=== PATIENT | male | born 1955 | race Caucasian/White ===

== ENCOUNTER 2018-08-02 20:30 | Inpatient (IN) | payer MEDICARE ==
[~2018-08-02] VITALS: Ht 162.6 cm; Wt 84.6 kg
[~2018-08-02 20:30] MED LIST: GABA300 PO; SERT25; TAMS.4ER PO; TRAZ150T57 PO
[2018-08-02 21:54] LABS: BASOPHILS ABSOLUTE AUTO 0.06 K/mm3 (0.00-0.23); BASOPHILS PERCENT AUTO 1 % (0-2); EOSINOPHILS ABSOLUTE AUTO 0.01 K/mm3 (0.00-0.68); EOSINOPHILS PERCENT AUTO 0 % (0-6); Hematocrit 41.3 % (37.0-53.0); Hemoglobin 13.7 g/dL (13.5-17.5); IMMATURE GRAN ABSOLUTE AUTO 0.39 K/mm3 (0.00-0.10); IMMATURE GRAN PERCENT AUTO 4 % (0-1); LYMPHOCYTES PERCENT AUTO 19 % (21-46); MONOCYTES ABSOLUTE AUTO 0.84 K/mm3 (0.16-1.47); MONOCYTES PERCENT AUTO 8 % (4-13); Mean Corpuscular HGB 32.2 pg (26.0-34.0); Mean Corpuscular HGB Conc 33.2 g/dL (31.5-36.5); Mean Corpuscular Volume 97 fL (80-100); Mean Platelet Volume 10.3 fL (9.1-12.4); NEUTROPHILS ABSOLUTE AUTO 7.04 K/mm3 (1.96-9.15); NEUTROPHILS PERCENT AUTO 68 % (41-73); NRBC ABSOLUTE 0.13 K/mm3 (0.00-0.02); NRBC Auto 1.3 /100 WBC (0.0-0.2); Platelet Count 200 K/mm3 (150-400); RDW Coefficient Variation 19.2 % (11.7-14.2); RDW Standard Deviation 65.4 fL (35.1-46.3); Red Blood Cell Count 4.26 M/mm3 (4.30-5.90); White Blood Cell Count 10.34 K/mm3 (4.00-11.30)
[2018-08-02 22:17] LABS: Alanine Aminotransfer (ALT/SGP 173 U/L (12-78); Albumin, Blood 2.8 g/dL (3.4-5.0); Albumin/Globulin Ratio 0.7 (0.8-1.8); Anion Gap 16 mmol/L (6-16); Aspartate Aminotrans (AST/SGOT 558 U/L (12-37); Bilirubin, Total 7.1 mg/dL (0.1-1.0); Blood Urea Nitrogen 29 mg/dL (8-24); Bun/Creatinine Ratio 36.1 (12.0-20.0); CO2, Blood 17 mmol/L (21-32); Calcium, Blood 9.7 mg/dL (8.5-10.1); Chloride, Blood 96 mmol/L (98-108); Globulin, Blood 3.8 g/dL (2.2-4.0); Glomerular Filtration Rate >60 (60-); Glucose, Blood 66 mg/dL (70-99); Potassium, Blood 4.5 mmol/L (3.5-5.5); Sodium, Blood 129 mmol/L (136-145); Total Protein, Blood 6.6 g/dL (6.4-8.2); Troponin I <0.015 ng/mL (0.000-0.040)
[2018-08-02 22:29] LABS: Alk Phos 1350 U/L (50-136)
[2018-08-02] MEDS ORDERED: ATOR80 PO (23:25)
[2018-08-02] MEDS ORDERED: LORA.5 PO (23:25)
[2018-08-03 01:23] LABS: Magnesium, Blood 2.5 mg/dL (1.6-2.4)
[2018-08-03 01:32] LABS: Acetaminophen, Random <2.0 ug/mL (10.0-30.0); Ethanol (Alcohol), Blood, Med <3 mg/dL; Salicylate <1.7 mg/dL (2.8-20.0)
[2018-08-03 02:10] LABS: International Normalized Ratio 3.84
[2018-08-03 04:27] LABS: Source, Urine Clean Catch
[2018-08-03 04:29] LABS: Appearance, Urine Clear (Clear); Blood, Urine 1+ (Neg); Color, Urine Amber (P-Yellow); Glucose Qualitative, Urine Neg (Neg); Ketones, Urine 2+ (Neg); Leukocyte Esterase, Urine 1+ (Neg); Nitrite, Urine Neg (Neg); Protein, Urine 1+ (Neg); Specific Gravity, Urine 1.015 (1.003-1.022); Urobilinogen, Urine 1+ (Normal)
[2018-08-03 04:31] LABS: Bilirubin, Urine 2+ (Neg)
[2018-08-03 04:35] LABS: Red Blood Cells, Urine 0-2 /hpf (0-2)
[2018-08-03 04:36] LABS: Bacteria Mod /hpf; Squamous Epithelial Cells Rare /hpf (Few)
[2018-08-03] MEDS ORDERED: SERT100 PO (13:27)
--- NOTE | 2018-08-03 17:50 | NUR ---
PT HAS COME FROM ER AND HAS BEEN OREIENTED INTO ROOM. PAIN IN ABDOMEN TREATED PER EMAR. 1 PERSON STANDBY AT THIS TIME WILL CONTINUE TO MONITOR.
[2018-08-03 17:55] LABS: Cancer Antigen 19-9 793.3 U/mL (2.0-37.0); Carcinoembryonic Antigen 435.7 ng/mL (0.0-3.0)
--- NOTE | 2018-08-04 04:23 | NUR ---
63 Y/O MALE RESTED COMFORTABLY ALL EVENING IN BED. PT RECEIVED FENTANYL 50MCG X2 FOR ABD DISCOMFORT WITH RELIEF NOTED. PT DENIES NAUSEA. GAIT STEADY AND EVEN TO BATHROOM. PTS BED IN LOW POSITION, CALL LIGHT AT SIDE.
[2018-08-04 05:16] LABS: BASOPHILS ABSOLUTE AUTO 0.04 K/mm3 (0.00-0.23); BASOPHILS PERCENT AUTO 0 % (0-2); EOSINOPHILS ABSOLUTE AUTO 0.01 K/mm3 (0.00-0.68); EOSINOPHILS PERCENT AUTO 0 % (0-6); Hematocrit 38.7 % (37.0-53.0); Hemoglobin 12.6 g/dL (13.5-17.5); IMMATURE GRAN ABSOLUTE AUTO 0.37 K/mm3 (0.00-0.10); IMMATURE GRAN PERCENT AUTO 4 % (0-1); LYMPHOCYTES ABSOLUTE AUTO 2.03 K/mm3 (0.84-5.20); LYMPHOCYTES PERCENT AUTO 19 % (21-46); MONOCYTES ABSOLUTE AUTO 0.77 K/mm3 (0.16-1.47); MONOCYTES PERCENT AUTO 7 % (4-13); Mean Corpuscular HGB 31.4 pg (26.0-34.0); Mean Corpuscular HGB Conc 32.6 g/dL (31.5-36.5); Mean Corpuscular Volume 97 fL (80-100); Mean Platelet Volume 10.6 fL (9.1-12.4); NEUTROPHILS ABSOLUTE AUTO 7.41 K/mm3 (1.96-9.15); NEUTROPHILS PERCENT AUTO 70 % (41-73); NRBC ABSOLUTE 0.18 K/mm3 (0.00-0.02); NRBC Auto 1.7 /100 WBC (0.0-0.2); Platelet Count 192 K/mm3 (150-400); RDW Coefficient Variation 18.7 % (11.7-14.2); RDW Standard Deviation 63.4 fL (35.1-46.3); Red Blood Cell Count 4.01 M/mm3 (4.30-5.90); White Blood Cell Count 10.63 K/mm3 (4.00-11.30)
[2018-08-04 05:39] LABS: Alanine Aminotransfer (ALT/SGP 188 U/L (12-78); Albumin, Blood 2.5 g/dL (3.4-5.0); Albumin/Globulin Ratio 0.7 (0.8-1.8); Anion Gap 13 mmol/L (6-16); Aspartate Aminotrans (AST/SGOT 638 U/L (12-37); Bilirubin, Total 8.6 mg/dL (0.1-1.0); Blood Urea Nitrogen 43 mg/dL (8-24); Bun/Creatinine Ratio 50.2 (12.0-20.0); CO2, Blood 18 mmol/L (21-32); Calcium, Blood 9.6 mg/dL (8.5-10.1); Chloride, Blood 96 mmol/L (98-108); Creatinine, Blood 0.86 mg/dL (0.60-1.20); Globulin, Blood 3.8 g/dL (2.2-4.0); Glomerular Filtration Rate >60 (60-); Glucose, Blood 85 mg/dL (70-99); Potassium, Blood 4.7 mmol/L (3.5-5.5); Sodium, Blood 127 mmol/L (136-145); Total Protein, Blood 6.3 g/dL (6.4-8.2)
[2018-08-04 05:52] LABS: Alk Phos 1182 U/L (50-136)
[2018-08-04 14:58] LABS: International Normalized Ratio 1.94; Prothrombin Time Results 19.4 Sec (9.7-11.5)
--- NOTE | 2018-08-04 17:45 | NUR ---
SHIFT SUMMARY PATIENT A&O X4, INDEPENDENT IN THE ROOM. MEDICATED FOR LOWER ABD PAIN THROUGHOUT THE SHIFT. DENIES ANY SOB. MEDICATED FOR NAUSEA AND INDEGESTION X2 THIS SHIFT. IV VIT K X1. NO ACUTE CHANGES. RN WILL CONTINUE TO MONITOR.
--- NOTE | 2018-08-04 19:34 | NUR ---
Initial Visit: Consult received for cancer, advanced care planning, end of life/comfort care, new diagnosis. Pt seen for new metastatic disease diagnosis. Pt is alert, oriented, pleasant. He reports pain level of 3/10. He states that this is an acceptable level for him. He reports moderate anxiety. Has PTSD and this has caused anxiety to be amplified. He has not been sleeping. He thinks that the fentanyl is causing "sweats." He reports he hasn't been able to sleep because of this. He would be open to trying something for sleep tonight. Reviewed care and plan. He is to be seen by oncology, biopsy scheduled for tomorrow. He is "trying to stay positive." Discussed with nursing. Reviewed eMAR. Pt has ativan on profile and also some norco. Suggested this to nursing to treat patient with these medications tonight to see how he does. Will remain available.
[2018-08-05 05:11] LABS: BASOPHILS ABSOLUTE AUTO 0.03 K/mm3 (0.00-0.23); BASOPHILS PERCENT AUTO 0 % (0-2); EOSINOPHILS PERCENT AUTO 0 % (0-6); Hematocrit 38.4 % (37.0-53.0); Hemoglobin 12.7 g/dL (13.5-17.5); IMMATURE GRAN ABSOLUTE AUTO 0.55 K/mm3 (0.00-0.10); IMMATURE GRAN PERCENT AUTO 5 % (0-1); LYMPHOCYTES ABSOLUTE AUTO 1.82 K/mm3 (0.84-5.20); LYMPHOCYTES PERCENT AUTO 17 % (21-46); MONOCYTES ABSOLUTE AUTO 0.79 K/mm3 (0.16-1.47); MONOCYTES PERCENT AUTO 7 % (4-13); Mean Corpuscular HGB 32.3 pg (26.0-34.0); Mean Corpuscular HGB Conc 33.1 g/dL (31.5-36.5); Mean Corpuscular Volume 98 fL (80-100); Mean Platelet Volume 10.6 fL (9.1-12.4); NEUTROPHILS PERCENT AUTO 70 % (41-73); NRBC ABSOLUTE 0.36 K/mm3 (0.00-0.02); NRBC Auto 3.4 /100 WBC (0.0-0.2); Platelet Count 193 K/mm3 (150-400); RDW Coefficient Variation 18.4 % (11.7-14.2); RDW Standard Deviation 63.7 fL (35.1-46.3); Red Blood Cell Count 3.93 M/mm3 (4.30-5.90); White Blood Cell Count 10.69 K/mm3 (4.00-11.30)
[2018-08-05 05:27] LABS: International Normalized Ratio 1.2; Prothrombin Time Results 12.5 Sec (9.7-11.5)
--- NOTE | 2018-08-05 05:36 | NUR ---
SHIFT SUMMARY PT HAS BEEN AWAKE MOST OF NIGHT, HAS MAYBE SLEPT 1-2 HOURS MAX, STATES HE HAS BEEN HAVING DIFFICULTY SLEEPING EVEN @HOME. AOX4. VSS. DENIES SOB & SPO2 >90% ON RA. REPORTS 6/10 RIGHT SIDE ABD PAIN, MEDICATED PER ORDERS. UPPER QUADRANTS OF ABD ARE FIRM TO PALPATION. PT REPORTED FEELING NAUSEOUS LAST NIGHT & WAS MEDICATED 1X W/ZOFRAN. PT ALSO REPORTS HAVING HEARTBURN & INCREASED BELCHING, MEDICATED 2X W/MAALOX PLUS PER ORDERS. CALL LIGHT IS IN REACH & I WILL CONTINUE TO MONITOR PT.
[2018-08-05 05:43] LABS: Alanine Aminotransfer (ALT/SGP 200 U/L (12-78); Albumin, Blood 2.6 g/dL (3.4-5.0); Albumin/Globulin Ratio 0.7 (0.8-1.8); Anion Gap 16 mmol/L (6-16); Aspartate Aminotrans (AST/SGOT 702 U/L (12-37); Bilirubin, Total 9.6 mg/dL (0.1-1.0); Blood Urea Nitrogen 60 mg/dL (8-24); Bun/Creatinine Ratio 47.6 (12.0-20.0); CO2, Blood 16 mmol/L (21-32); Calcium, Blood 9.5 mg/dL (8.5-10.1); Chloride, Blood 92 mmol/L (98-108); Creatinine, Blood 1.26 mg/dL (0.60-1.20); Globulin, Blood 3.7 g/dL (2.2-4.0); Glomerular Filtration Rate >60 (60-); Glucose, Blood 153 mg/dL (70-99); Potassium, Blood 4.5 mmol/L (3.5-5.5); Sodium, Blood 124 mmol/L (136-145); Total Protein, Blood 6.3 g/dL (6.4-8.2)
[2018-08-05 06:16] LABS: Alk Phos 1116 U/L (50-136)
[2018-08-05 07:14] LABS: HBSAG SCREEN Negative (Negative); HEP A AB, IGM Negative (Negative); HEP B CORE AB, IGM Negative (Negative); HEP C VIRUS AB <0.1 (0.0-0.9)
--- NOTE | 2018-08-05 16:11 | NUR ---
SHIFT SUMMARY PATIENT A&O X4, SBA TO THE BATHROOM. C/O RUQ/RLQ PAIN THROUGHOUT THE SHIFT, RN MEDICATED PER E JUL. PATIENT WENT FOR CT BIOPSY OF THE LIVER TODAY. RN MEDICATED FOR NAUSEA AND HEARTBURN X2 THIS SHIFT. THIS AM RN NOTICED THAT THE PATIENTS SPEECH SEEMED A LITTLE SLURRED AND HARD TO UNDERSTAND, PATIENT REMAINED A&O X4. DR. FRITZ NOTIFIED. SPEECH PROGRESSIVLEY IMPROVED THROUGHOUT THE SHIFT. O2 DESAT TO MID TO HIGH 80S THIS SHIFT, RN PLACED PATIENT ON 1L NC, PATIENT DENIES SOB. NO OTHER ACUTE CHANGES THIS SHIFT. RN WILL CONTINUE TO MONITOR.
--- NOTE | 2018-08-06 07:26 | NUR ---
NOC SHIFT SUMMARY PT IS PLEASANT AND COOPERATIVE WITH CARE THIS NIGHT. RESPONDS APPROPRIATELY TO QUESTIONS BUT IS QUITE FORGETFUL AND WAS CONSTANTLY REMOVING HIS NASAL CANULA. SPEACH IS SLIGHTLY SLURRED. PER PREVIOUS RN THIS STARTED YESTERDAY AND MD WAS MADE AWARE. OXYGEN WAS BUMPED UP FROM 1 TO 2 LITERS THIS NIGHT TO MAINTAIN SATS OVER 90%. NO ACUTE CHANGES NOTED THIS NIGHT. PT APPEARS IN NO ACUTE DISTRESS. REPORT TO ONCOMING RN.
--- NOTE | 2018-08-06 18:40 | NUR ---
NO CHANGES THIS SHIFT. PATIENT IS A/O TO SELF AND PLACE. HE CONTINUES TO REMOVE HIS 02 LINES WHICH ARE REPLACED SOON NEEDED. HE IS ABLE TO WALK TO THE RESTROOM. CLEAR OF CDIFF BUT CONTINUES TO HAVE WATERY STOOLS.
--- NOTE | 2018-08-07 07:35 | NUR ---
NOC SHIFT SUMMARY PT WAS CONFUSED THIS NIGHT. COOPERATIVE WITH CARE AND EASILY REDIRECTED BUT CONTINUALY GETTING OUT OF BED AND WAS VERY UNSTEADY ON HIS FEET. AFTER GETTING UP MULTIPLE TIMES IN SPITE OF CALL LIGHT AND BED ALARM PLACED IT WAS NECESSARY FOR CIRO TO BE PLACED PT WAS A FALL RISK. OBTAINED ORDER AT 0222. AT 0456 THIS MORNING PT WAS FOUND TO HAVE GOTTEN OUT OF HIS CIRO VEST, PULLED OUT HIS L HAND IV, AND REMOVED HIS O2. WAS ROLLING IN BED COMPLAINING OF SOB AND VERY CONFUSED. BECAME NECESSARY FOR WRIST RESTRAINTS WELL. ORDER RECIEVED FROM DR. SANTO. VSS. PT BREATHING EVEN AND UNLABORED AFTER REPLACING NASAL CANNULA. REPORT TO ONCOMING RN.
[2018-08-07 08:16] LABS: BASOPHILS ABSOLUTE AUTO 0.05 K/mm3 (0.00-0.23); BASOPHILS PERCENT AUTO 0 % (0-2); EOSINOPHILS ABSOLUTE AUTO 0.01 K/mm3 (0.00-0.68); EOSINOPHILS PERCENT AUTO 0 % (0-6); Hematocrit 33.9 % (37.0-53.0); Hemoglobin 11.1 g/dL (13.5-17.5); IMMATURE GRAN ABSOLUTE AUTO 0.89 K/mm3 (0.00-0.10); IMMATURE GRAN PERCENT AUTO 6 % (0-1); LYMPHOCYTES ABSOLUTE AUTO 3.22 K/mm3 (0.84-5.20); LYMPHOCYTES PERCENT AUTO 22 % (21-46); MONOCYTES ABSOLUTE AUTO 0.87 K/mm3 (0.16-1.47); MONOCYTES PERCENT AUTO 6 % (4-13); Mean Corpuscular HGB 32.4 pg (26.0-34.0); Mean Corpuscular HGB Conc 32.7 g/dL (31.5-36.5); Mean Corpuscular Volume 99 fL (80-100); Mean Platelet Volume 10.8 fL (9.1-12.4); NEUTROPHILS ABSOLUTE AUTO 9.31 K/mm3 (1.96-9.15); NEUTROPHILS PERCENT AUTO 65 % (41-73); NRBC ABSOLUTE 0.95 K/mm3 (0.00-0.02); NRBC Auto 6.6 /100 WBC (0.0-0.2); Platelet Count 186 K/mm3 (150-400); RDW Coefficient Variation 19.2 % (11.7-14.2); RDW Standard Deviation 65.9 fL (35.1-46.3); Red Blood Cell Count 3.43 M/mm3 (4.30-5.90); White Blood Cell Count 14.35 K/mm3 (4.00-11.30)
[2018-08-07 08:58] LABS: Albumin, Blood 2.3 g/dL (3.4-5.0); Albumin/Globulin Ratio 0.7 (0.8-1.8); Bilirubin, Total 11.5 mg/dL (0.1-1.0); Bun/Creatinine Ratio 34.5 (12.0-20.0); Calcium, Blood 9.1 mg/dL (8.5-10.1); Creatinine, Blood 2.55 mg/dL (0.60-1.20); Globulin, Blood 3.4 g/dL (2.2-4.0); Potassium, Blood 6.6 mmol/L (3.5-5.5); Total Protein, Blood 5.7 g/dL (6.4-8.2)
--- NOTE | 2018-08-07 09:10 | NUR ---
PATIENT PLACED ON CC DUE TO DECLINE IN CONDITION. PATIENT DIAPHORETIC AND NURSE APPLIED COLD COMPRESS TO HEAD. FAMILY NOTIFIED OF PATIENTS CONDITION.
--- NOTE | 2018-08-07 11:46 | NUR ---
PATIENT HAVING APNEA. ON O2
--- NOTE | 2018-08-07 11:49 | NUR ---
1100 NURSE WENT IN TO CHECK ON PATIENT AND FOUND HIM WITH NO PULSE OR HEART BEAT. SECOND NURSE CALLED IN AND CONFIRMED THAT PATIENT HAD PASSED. THIS NURSE CALLED PATIENTS BROTHER AND INFOMRED HIM OF PASSING. PATIENTS HOUSE MATE CALLED WHILE NURSE IN ROOM AND SHE WAS INFORMED OF PASSING. BODY PREPARED BY AIDES.
== END 2018-08-07 11:08 | DRG 871 ==
LOC: ER 20:30 → ERHOLD 08-03 05:44 → MEDS 08-03 05:44
PROVIDERS: Emergency Medicine; Internal Medicine; ADMIT Hospitalist
PROC: 0FB03ZX Excision of Liver, Percutaneous Approach, Diagnostic (ICD-10-PCS; principal; 2018-08-06)
DX: A41.9 Sepsis, unspecified organism (principal); J18.9 Pneumonia, unspecified organism; E87.2 Acidosis; E87.1 Hypo-osmolality and hyponatremia; C78.7 Secondary malignant neoplasm of liver and intrahepatic bile duct; C78.1 Secondary malignant neoplasm of mediastinum; C77.1 Secondary and unspecified malignant neoplasm of intrathoracic lymph nodes; C34.11 Malignant neoplasm of upper lobe, right bronchus or lung; Z51.5 Encounter for palliative care; R65.20 Severe sepsis without septic shock; F32.9 Major depressive disorder, single episode, unspecified; F43.10 Post-traumatic stress disorder, unspecified; F41.8 Other specified anxiety disorders; E86.0 Dehydration; F17.210 Nicotine dependence, cigarettes, uncomplicated; Z96.642 Presence of left artificial hip joint; K72.90 Hepatic failure, unspecified without coma; N19 Unspecified kidney failure
CPT/HCPCS: 36415; 47000; 70470; 71046; 71260; 74177; 77012; 80053; 80074; 81001; 82140; 82378; 83605; 83690; 83735; 83880; 84145; 84484; 85025; 85610; 86301; 87040; 87086; 87493; 88307; 88341; 88342; 93005; 93010; 94760; 94762; 96365-59; 96367-59; 96375-59; 99285-25; A9270-GY; G0480; J0456; J0696; J1170; J1650; J2060; J2270; J2405; J3010; J3430; J7030; J7050; Q9967